=== PATIENT | female | born 1950 | race Caucasian/White ===

== ENCOUNTER → 2023-08-17 09:25 | Outpatient (REF) | payer OTHER, SELFPAY | LOC: HWRAD 09:25 | PROVIDERS: ATTENDING PHYSICIAN Physician Assistant; FAMILY PHYSICIAN Family Medicine | DX: M81.0 Age-related osteoporosis without current pathological fracture (principal) | CPT/HCPCS: 77080; 77081 ==

== ENCOUNTER → 2023-11-24 06:29 | Day surgery (SDC) | payer OTHER, SELFPAY | LOC: GI 06:29 | PROVIDERS: ATTENDING PHYSICIAN Internal Medicine; FAMILY PHYSICIAN Family Medicine | DX: Z12.11 Encounter for screening for malignant neoplasm of colon (principal); R19.5 Other fecal abnormalities; K64.8 Other hemorrhoids; K63.3 Ulcer of intestine | CPT/HCPCS: 45380; 88305 ==

== ENCOUNTER → 2023-12-21 07:47 | Outpatient (REF) | payer OTHER, SELFPAY | LOC: HWRAD 07:47 | PROVIDERS: ATTENDING PHYSICIAN Internal Medicine; FAMILY PHYSICIAN Family Medicine | DX: R93.3 Abnormal findings on diagnostic imaging of other parts of digestive tract (principal); K63.3 Ulcer of intestine | CPT/HCPCS: 74177; Q9967 ==

== ENCOUNTER → 2024-02-01 11:28 | Outpatient (REF) | payer OTHER, SELFPAY | LOC: HWWDC 11:28 | PROVIDERS: ATTENDING PHYSICIAN Obstetrics & Gynecology Gynecology; FAMILY PHYSICIAN Family Medicine | DX: Z12.31 Encounter for screening mammogram for malignant neoplasm of breast (principal) | CPT/HCPCS: 77063; 77067 ==

== ENCOUNTER → 2024-03-20 09:12 | Outpatient (REF) | payer OTHER, SELFPAY | LOC: HWRAD 09:12 | PROVIDERS: ATTENDING PHYSICIAN Family Medicine | DX: I10 Essential (primary) hypertension (principal); E89.2 Postprocedural hypoparathyroidism; M81.0 Age-related osteoporosis without current pathological fracture; M79.604 Pain in right leg; R25.1 Tremor, unspecified; M54.50 Low back pain, unspecified | CPT/HCPCS: 72110; 73552 ==

== ENCOUNTER 2024-04-05 06:24 | Day surgery (SDC) | payer OTHER, SELFPAY | END 2024-04-05 08:20 | disposition home or self-care (01) | LOC: GI 06:24 | PROVIDERS: ATTENDING PHYSICIAN Internal Medicine | DX: K55.20 Angiodysplasia of colon without hemorrhage (principal); K64.8 Other hemorrhoids; K57.30 Diverticulosis of large intestine without perforation or abscess without bleeding | CPT/HCPCS: 45378 ==

== ENCOUNTER → 2024-08-15 09:45 | Outpatient (REF) | payer OTHER, SELFPAY | LOC: HWRAD 09:45 | PROVIDERS: ATTENDING PHYSICIAN Physician Assistant; FAMILY PHYSICIAN Family Medicine | DX: E04.2 Nontoxic multinodular goiter (principal) | CPT/HCPCS: 76536 ==